=== PATIENT | male | born 1945 | race Caucasian/White ===

== ENCOUNTER 2020-09-12 17:17 | Emergency (ER) | payer MEDICARE, BC ==
[2020-09-12] MEDS ORDERED: Metoprolol Tartrate 5 MG/5 ML SDV IVPUSH ONE (17:41)
[2020-09-12] MEDS ORDERED: hydrOXYzine HCl 25 MG Tab PO ONE (17:41)
[2020-09-12] MEDS ORDERED: Sodium Chloride 0.9% 10 ML Syringe FLUSH PRN (17:42)
--- NOTE | 2020-09-12 17:56 | EDM.PDOC ---
ED HPI GENERAL MEDICAL PROBLEM - General Chief Complaint: Cardiovascular Problem Stated Complaint: ELEVATED BLOOD PRESSURE Time Seen by Provider: 09/12/20 17:20 Source of Information: Reports: Patient History Limitations: Reports: No Limitations - History of Present Illness INITIAL COMMENTS - FREE TEXT/NARRATIVE: Patient comes into the emergency department with elevated blood pressure and anxiety. Patient does have an appointment to see his primary care provider for the first time in many years to have his elevated blood pressure evaluated. Patient states this afternoon he began to get nervous regarding his appointment tomorrow for he needs clearance for cataract surgery. He has not been to a doctor in many years and is been nervous about in his slowly been working hi [employer] up throughout the afternoon. Patient states he does have a longstanding history of anxiety. Patient denies any chest pain, shortness of breath, dizziness, lightheadedness. He states he had a heart palpitation and his palms became sweaty. Patient states when he took a few deep breaths he was able to calm himself down. Patient states that the anxiety has now resolved. He denies any ongoing concerns or issues. He is concerned about his elevated blood pressure would like it evaluated. Onset: Gradual - Related Data Allergies Allergy/AdvReac Type Severity Reaction Status Date / Time No Known Allergies Allergy Verified 09/12/20 17:45 Home Meds: Home Meds Aspirin [Verónica Chewable] 81 mg PO DAILY 09/12/20 [History] ED ROS GENERAL - Review of Systems Review Of Systems: Comprehensive ROS is negative, except as noted in HPI. Constitutional: Reports: No Symptoms HEENT: Reports: No Symptoms Respiratory: Reports: No Symptoms Cardiovascular: Reports: No Symptoms Endocrine: Reports: No Symptoms GI/Abdominal: Reports: No Symptoms : Reports: No Symptoms Musculoskeletal: Reports: No Symptoms Skin: Reports: No Symptoms Neurological: Reports: No Symptoms Psychiatric: Reports: Anxiety Hematologic/Lymphatic: Reports: No Symptoms Immunologic: Reports: No Symptoms ED EXAM, GENERAL - Physical Exam Exam: See Below Exam Limited By: No Limitations General Appearance: Alert, WD/WN, No Apparent Distress Eye Exam: Bilateral Eye: PERRL Ears: Normal External Exam, Normal Canal, Hearing Grossly Normal, Normal TMs Ear Exam: Bilateral Ear: Auricle Normal, Canal Normal, TM normal Nose: Normal Inspection, Normal Mucosa, No Blood Throat/Mouth: Normal Inspection, Normal Lips, Normal Teeth, Normal Gums, Normal Oropharynx, Normal Voice, No Airway Compromise Head: Atraumatic, Normocephalic Neck: Normal Inspection, Supple, Non-Tender, Full Range of Motion Respiratory/Chest: No Respiratory Distress, Lungs Clear, Normal Breath Sounds, No Accessory Muscle Use, Chest Non-Tender Cardiovascular: Normal Peripheral Pulses, Regular Rate, Rhythm, No Edema, No Gallop, No JVD, No Murmur, No Rub GI/Abdominal: Normal Bowel Sounds, Soft, Non-Tender, No Organomegaly, No Distention, No Abnormal Bruit, No Mass Back Exam: Normal Inspection, Full Range of Motion, NT Extremities: Normal Inspection, Normal Range of Motion, Non-Tender, Normal Capillary Refill, No Pedal Edema Neurological: Alert, Oriented, CN II-XII Intact, Normal Cognition, Normal Gait, Normal Reflexes, No Motor/Sensory Deficits Psychiatric: Anxious Skin Exam: Warm, Dry, Intact, Normal Color, No Rash Lymphatic: No Adenopathy #1 Interpretation EKG Date: 09/12/20 Rhythm: NSR [place]: Normal P-Wave: Present QRS: Normal ST-T: Normal QT: Normal Comparison: NA - No Prior EKG Course - Vital Signs Last Recorded V/S: Last Vital Signs Temp 36.6 C 09/12/20 18:21 Pulse 58 L 09/12/20 18:31 Resp 17 09/12/20 18:31 BP 199/108 H 09/12/20 18:31 Pulse Ox 96 09/12/20 18:31 - Orders/Labs/Meds Orders: Active Orders 24 hr Category Date Time Status Chest 1V Frontal [CR] Stat Exams 09/12/20 17:42 Ordered Sodium Chloride 0.9% [Saline Flush] Med 09/12/20 17:42 Ordered 10 ml FLUSH ASDIRECTED PRN Peripheral IV Insertion Adult [OM.PC] Stat Oth 09/12/20 17:42 Ordered Medication Orders Sodium Chloride (Sodium Chloride 0.9% 10 Ml Syringe) 10 ml FLUSH ASDIRECTED PRN PRN Reason: Keep Vein Open Labs: Laboratory Tests 09/12/20 09/12/20 Range/Units 17:38 17:38 WBC 6.6 (4.0-10.0) x10^3/uL RBC 4.34 L (4.5-6.0) x10^6/uL Hgb 14.4 (14.0-18.0) g/dL Hct 39.4 L (40.0-52.0) % MCV 90.8 (78.0-93.0) fL MCH 33.2 H (26.0-32.0) pg MCHC 36.5 H (32.0-36.0) g/dL RDW Coeff of Hamzah 12.2 (10.0-15.0) % Plt Count 254 (130-400) x10^3/uL Neut % (Auto) 51.9 (50.0-80.0) % Lymph % (Auto) 34.4 (25.0-50.0) % Dickinson % (Auto) 11.4 H (2.0-11.0) % Eos % (Auto) 1.5 (0.0-4.0) % Baso % (Auto) 0.8 (0.2-1.2) % Sodium 136 (136-145) mmol/L Potassium 3.9 (3.5-5.1) mmol/L Chloride 99 (98-107) mmol/L Carbon Dioxide 25 (21-32) mmol/L Anion Gap 15.9 H (5-15) mmol/L BUN 11 (7-18) mg/dL Creatinine 1.0 (0.70-1.30) mg/dL Est Cr Clr Drug Dosing TNP Estimated GFR (MDRD) > 60 Glucose 105 H (70-99) mg/dL Calcium 8.8 (8.5-10.1) mg/dL Corrected Calcium 9.0 (8.5-10.1) mg/dL Total Bilirubin 0.5 (0.2-1.0) mg/dL AST 20 (15-37) U/L ALT 19 (16-63) U/L Alkaline Phosphatase 60 (46-116) U/L Creatine Kinase 217 (39-308) U/L Troponin I High Sens 5 (<=76) ng/L NT-Pro-B Natriuret Pep 99 (<=125) pg/mL Total Protein 7.8 (6.4-8.2) g/dL Albumin 3.7 (3.4-5.0) g/dL Globulin 4.1 Albumin/Globulin Ratio 0.90 Meds: Medications Generic Name Dose Route Start Last Admin Trade Name Freq PRN Reason Stop Dose Admin Sodium Chloride 10 ml 09/12/20 17:42 Sodium Chloride 0.9% 10 Ml Syringe FLUSH ASDIRECTED PRN Keep Vein Open Discontinued Medications Generic Name Dose Route Start Last Admin Trade Name Cali PRN Reason Stop Dose Admin Hydroxyzine HCl 50 mg 09/12/20 17:41 09/12/20 17:56 Hydroxyzine Hcl 25 Mg Tab PO 09/12/20 17:42 50 mg ONETIME ONE Administration Metoprolol Tartrate 5 mg 09/12/20 17:41 09/12/20 17:56 Metoprolol Tartrate 5 Mg/5 Ml Sdv IVPUSH 09/12/20 17:42 5 mg ONETIME ONE Administration Departure - Departure Time of Disposition: 18:50 Disposition: Home, Self-Care 01 Condition: Good Clinical Impression: Palpitations, Anxiety about health, Elevated blood pressure reading Instructions: Hypertension, Adult, [id number], Managing Anxiety, Adult, Metoprolol injection, Hydroxyzine capsules or tablets Referrals: Dana Mayen MD [Primary Care Provider] - Forms: ED Department Discharge Additional Instructions: 1. rest 2. increase your water intake 3. Continue all at home medications 4. Activity and diet as tolerated 5. Can take over the counter Tylenol for any pain or discomfort 6. Follow up with PCP if symptoms continue, return, or progress 7. Call with any questions or concerns Sepsis Event Note (ED) - Focused Exam Vital Signs: Vital Signs Temp Pulse Pulse Resp BP BP Pulse Ox 09/12/20 18:31 58 L 17 199/108 H 96 09/12/20 18:21 36.6 C 56 L 14 201/105 H 94 L 09/12/20 18:11 69 15 194/104 H 96 09/12/20 18:04 77 17 213/112 H 95 09/12/20 17:56 74 203/110 H 09/12/20 17:43 80 17 203/110 H 95 - My Orders Last 24 Hours: My Active Orders 09/12/20 17:42 Chest 1V Frontal [CR] Stat Sodium Chloride 0.9% [Saline Flush] 10 ml FLUSH ASDIRECTED PRN Peripheral IV Insertion Adult [OM.PC] Stat - Assessment/Plan Last 24 Hours: My Active Orders 09/12/20 17:42 Chest 1V Frontal [CR] Stat Sodium Chloride 0.9% [Saline Flush] 10 ml FLUSH ASDIRECTED PRN Peripheral IV Insertion Adult [OM.PC] Stat Assessment:: 1. anxiety 2. elevated blood pressure Plan: 1. Labs completed in the ER. Results reviewed with the patient 2. IV initiated in the emergency department 3. IV fluids provided 4. Chest xray completed in ER. Results reviewed with the patient 5. hydroxyzine 50mg PO given in the ER for anxiety 6. Lopressor 5mg IV given in the ER for elevated blood pressure 7. EKG was completed in ER. Results reviewed with the patient 8. Patient and nursing staff was updated regarding the plan of care 9. Education provided the patient regarding activity, diet, rest, [id number] medication modalities, and follow-up care was provided 10. Patient and family are agreeable to the above plan of care 11. All questions and concerns were addressed with the patient and family prior to discharge
[2020-09-12 18:22] LABS: CHLORIDE,CL 99 mmol/L (98-107); SODIUM,NA 136 mmol/L (136-145)
[2020-09-12 18:23] LABS: ANION GAP 15.9 mmol/L (5-15)
--- NOTE | 2020-09-12 19:07 | CR ---
[id number] RAD/RAD Chest PA or AP 1V EXAM: RAD Chest PA or AP 1V INDICATION: HTN, PALPATATION COMPARISON: None. DISCUSSION: Cardiomediastinal silhouette is normal in size and contour. No infiltrate, effusion, pneumothorax, or edema. Pulmonary hyperinflation. IMPRESSION: No acute cardiopulmonary abnormality. Tim Mckeon DO 09/12/20 1906 Thank you for allowing us to participate in the care of your patient.
== END 2020-09-12 19:00 | disposition home or self-care (01) ==
LOC: SUPCPDRO 17:17 → VM.ED 17:17
DX: F41.9 Anxiety disorder, unspecified (principal); R00.2 Palpitations; R03.0 Elevated blood-pressure reading, without diagnosis of hypertension; Z79.82 Long term (current) use of aspirin
CPT/HCPCS: 71045; 80053; 82550; 83880; 84484; 85025; 93005; 93010; 96374; 99284; 99284-25; A9270-GY; J3490